=== PATIENT | female | born 1980 | race Asian ===

== ENCOUNTER 2019-08-02 22:35 | Emergency (ER) | payer OTHER ==
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
[2019-08-03 01:35] VITALS: BP 120/96; TEMP 98.1; O2SAT 100
== END 2019-08-03 00:29 | disposition home or self-care (01) ==
LOC: ER 22:35
DX: S00.33XA Contusion of nose, initial encounter (principal); W50.0XXA Accidental hit or strike by another person, initial encounter; Y93.9 Activity, unspecified; Y92.9 Unspecified place or not applicable; F32.9 Major depressive disorder, single episode, unspecified; Z88.6 Allergy status to analgesic agent
CPT/HCPCS: 99281